=== PATIENT | male | born 1950 | race Caucasian/White ===

== ENCOUNTER 2017-02-01 11:58 | Emergency (ER) | payer OTHER ==
[~2017-02-01] VITALS: Ht 172.7 cm; Wt 74.0 kg
[~2017-02-01 11:58] MED LIST: AMLO5TAB2 PO; GABA600T PO; MELO-1 PO; TEMA30CA PO
[2017-02-01 12:01] VITALS: BP 166/89; PULSE 92; RESP 19; TEMP 98.6; O2SAT 97
[2017-02-01] MEDS ORDERED: IBUP-232 PO (12:21)
[2017-02-01] MEDS ORDERED: ACETAMINOPHEN/HYDROcodone 325 MG/5 MG TAB PO ONE (12:30)
--- NOTE | 2017-02-01 13:10 | PD ---
HPI Chief Complaint: Back/ Neck Pain or Injury Time Seen by Provider: 12:24 Travel History International Travel<30 days: No Contact w/Intl Traveler<30days: No Traveled to known affect area: No History of Present Illness HPI 66-year-old male with history of chronic low back pain presents to the emergency room for evaluation of acute exacerbation. Patient states 10 days ago he fell down approximately 11 steps. Patient denies hitting his head or loss of consciousness. States he is not exactly sure how he fell because it happened so quickly. He denies any other injuries except in his low back. Since then he has had excruciating low back pain especially over his coccyx with radiation to the right. He has been taking ibuprofen without significant relief in symptoms. Pain is worsened when he moves certain ways. States he has been able to ambulate but with significant pain. Patient has hardware in his back from 5 previous surgeries, the most recent being about 2 year ago. He called his orthopedic surgeon, Dr. Pierre Bernabe, who recommended he come to the emergency room for evaluation. He has an appointment with Dr. Chepe Bernabe tomorrow for pre-existing ankle pain. Patient denies lower extremity paresthesias, loss of bowel or bladder control, or saddle anesthesia. PFSH Past Medical History Hx Anticoagulant Therapy: No Arthritis: Yes Asthma: No Autoimmune Disease: No Blood Disorders: No Anxiety: No Depression: No Heart Rhythm Problems: No Cancer: No Cardiovascular Problems: Yes (htn on meds) High Cholesterol: Yes Chemotherapy: No Chest Pain: No Congestive Heart Failure: No COPD: Yes Cerebrovascular Accident: No Diabetes: Yes (Pre-) Patient Takes Glucophage: No Diminished Hearing: Yes Endocrine: No Gastrointestinal Disorders: No Glaucoma: No Genitourinary: No Headaches: Yes Hepatitis: No (HX PANCREATITIS) Hiatal Hernia: No Hypertension: Yes Immune Disorder: No Musculoskeletal: Yes (ARTHRITIS,BACK) Neurologic: Yes (TRANSIENT [place]. ARM NUMBNESS,R foot numbness since surgery) Psychiatric: No Reproductive: No Respiratory: Yes (COPD) Immunizations Current: No Migraines: No Myocardial Infarction: No Pancreatitis: Yes Seizures: No Sickle Cell Disease: No Sleep Apnea: Yes Thyroid Disease: No Triglycerides - High: Yes Tetanus Vaccination: Unknown Influenza Vaccination: Yes Past Surgical History Abdominal Surgery: No AICD: No Body Medical Devices: Lumbar and Rt. wrist hardware Cardiac Surgery: No Ear Surgery: No Endocrine Surgery: No Eye Surgery: No Genitourinary Surgery: No Gynecologic Surgery: No Joint Replacement: No Neurologic Surgery: Yes (Lumbar laminectomy, fusion ) Oral Surgery: No Pacemaker: No Thoracic Surgery: No Other Surgery: Yes Social History Alcohol Use: Yes (Occ.) Tobacco Use: Yes (1 PPD) Substance Use: No Allergies-Medications (Allergen,Severity, Reaction): Coded Allergies: bee venom protein (honey bee) (Unverified Allergy, Severe, Anaphylaxis, 02/01/17) hornet venom (Unverified Allergy, Severe, DIFFICULTY BREATHING, EDEMA, 02/01) Reported Meds & Prescriptions Reported Meds & Active Scripts Active Lortab (Hydrocodone-Acetaminophen) 5-325 Mg Tab 1 Tab PO Q6H PRN Reported Ibuprofen 600 Mg Tab 600 Mg PO BID Temazepam 30 Mg Cap 30 Mg PO HS Amlodipine (Amlodipine Besylate) 5 Mg Tab 10 Mg PO DAILY Gabapentin 600 Mg Tab 600 Mg PO BID Review of Systems Except as stated in HPI: all other systems reviewed are Neg Physical Exam Narrative GENERAL: Well-nourished, well-developed male in no acute distress. Afebrile. Ambulatory. SKIN: Focused skin assessment warm/dry. Large area of ecchymosis over the coccyx region. HEAD: Normocephalic. EYES: No scleral icterus. No injection or drainage. NECK: Supple, trachea midline. No JVD or lymphadenopathy. CARDIOVASCULAR: Regular rate and rhythm without murmurs, gallops, or rubs. RESPIRATORY: Breath sounds equal bilaterally. No accessory muscle use. BACK: No significant midline tenderness of the lumbar spine. No obvious deformity. There is tenderness to palpation over the coccyx. No CVA tenderness. Data Data Last Documented VS Vital Signs Date Time Temp Pulse Resp B/P (MAP) Pulse Ox O2 Delivery O2 Flow Rate FiO2 02/01/17 12:01 98.6 92 19 166/89 (114) [address] Lumb Spine W/O Contrast (02/01/17 ) Acetamin-Hydrocod 325-5 Mg ([place] 5-325 (02/01/17 12:30) Splint Or Brace Apply/Monitor (02/01/17 14:37) MDM Medical Decision Making Medical Screen Exam Complete: Yes Emergency Medical Condition: Yes Medical Record Reviewed: Yes Differential Diagnosis Ecchymosis, fracture, sprain, strain, coccydynia Narrative Course 66-year-old male presents to the emergency room for evaluation of acute on chronic low back pain after injuring it 10 days ago. Patient states he fell down 11 stairs landing on his buttocks. Since then he has had extreme low back pain without radiation. He denies any other injuries. No focal neurological deficits. No midline tenderness. There is moderate ecchymosis over the coccyx and upper buttocks. Patient is concerned for the hardware in his back. CT shows mild acute compression fractures involving the inferior end plate of T12 superior endplate of L2 as well as other chronic findings. I spoke to the patient's orthopedic surgeon, Dr. Pierre Bernabe, who reviewed the images and release patient is stable to follow-up in his office in 1-2 weeks. Patient was offered TLSO brace but would prefer to use his brace at home. He was discharged with prescription for Lortab and told to return for worsening symptoms. He understands and agrees to plan. Diagnosis Primary Impression: Compression fx, lumbar spine Qualified Codes: S32.020A - Wedge compression fracture of second lumbar vertebra, initial encounter for closed fracture Referrals: Primary Care Physician Additional Instructions: Rest and drink plenty of fluids. Take Lortab as directed, as needed for pain. Do not drink alcohol or drive while taking this medication. Take ibuprofen with food as directed, as needed for pain. Apply ice to the affected area for 20 minutes at a time, as needed for pain and swelling. Sit on a donut shaped pillow. Follow-up with a primary care physician. Return to the emergency room for worsening symptoms. Med/Other Pt SpecificInfo: Prescription(s) given Scripts Hydrocodone-Acetaminophen (Lortab) 5-325 Mg Tab 1 TAB PO Q6H Y for PAIN, #15 TAB 0 Refills Prov: Roberta Jackson DO 02/01/17 Disposition: 01 DISCHARGE HOME Condition: Stable Kia Nash Feb 01, 2017 13:09
[2017-02-01] MEDS ORDERED: HYDR-3533 PO (13:15)
--- NOTE | 2017-02-01 13:49 | RADRPT ---
EXAM DATE/TIME: 02/01/2017 12:58 [facility] COMPARISON: No previous studies available for comparison. INDICATIONS : Low back pain. Fell 1 1/2 weeks ago. RADIATION DOSE: 37.60 CTDIvol (mGy) MEDICAL HISTORY : Chronic obstructive pulmonary disease. Hypertension. SURGICAL HISTORY : Fusion, lumbar. ENCOUNTER: Initial ACUITY: 1 week PAIN SCALE: 8/10 LOCATION: Bilateral low back TECHNIQUE: Volumetric scanning of the lumbar spine was performed. Multiplanar reconstructions in the sagittal, coronal and oblique axial planes were performed. Using automated exposure control and adjustment of the mA and/or kV according to patient size, radiation dose was kept as low as reasonably achievable t o obtain optimal diagnostic quality images. DICOM format image data is available electronically for review and comparison. FINDINGS: Mild acute compression deformities are noted involving the inferior end plate of T12 and the superior end plate of L2, mild chronic compression deformities are noted involving L1. Posterior lumbar spin e fusion hardware is noted extending from L3 through S1. Disc implants are noted at L3-4, L4-5 and L 5-S1. Severe bilateral foraminal narrowing is noted at L5-S1. Moderate bilateral foraminal narrowin g is noted at L2-3, L3-4, and L4-5. Moderate circumferential spinal stenosis is noted at L2-3. CONCLUSION: 1. Mild acute compression fractures involving the inferior end plate of T12 and the superior end jonnie te of L2. Chronic mild compression deformity involving L1 is also noted. 2. Moderate circumferential spinal stenosis and bilateral foraminal narrowing at L2-3. 3. Severe bilateral foraminal narrowing at L5-S1 as well as moderate bilateral foraminal narrowing a t L3-4 and L4-5. Santana Willis MD on February 01, 2017 at 13:21 Board Certified Radiologist. This report was verified electronically.
--- NOTE | 2017-02-01 14:37 | PD ---
Physical Exam Narrative I, Dr. Jackson, have reviewed the advance practice practitioner's documentation and am in agreement, met with the patient face to face, made the diagnosis, and the medical decision making was done by me. *My assessment and Findings: Fracture vs. contusion 66yo M with chronic back pain here with acute on chronic back pain after falling down steps 10 days ago. Pt able to ambulate after. No focal neurologic deficits. Exam showed midline surgical scar and was not tender on my exam. Pt was sent by his orthopedic surgeon Dr. Parra's office for evaluation. CT LS showed mild acute compression fractures involving inferior end plate of T12 and superior end plate of L2. Dr. Parra was called and pt can follow up with him as outpatient. Will prescribe lortab for pain and have pt follow up with Dr. Parra. Return precautions given. Data Data Last Documented VS Vital Signs Date Time Temp Pulse Resp B/P (MAP) Pulse Ox O2 Delivery O2 Flow Rate FiO2 02/01/17 12:01 98.6 92 19 166/89 (114) [address] Lumb Spine W/O Contrast (02/01/17 ) Acetamin-Hydrocod 325-5 Mg ([place] 5-325 (02/01/17 12:30) Splint Or Brace Apply/Monitor (02/01/17 14:37) MDM Supervised Visit with RAUL: Yes Diagnosis Primary Impression: Compression fx, lumbar spine Qualified Codes: S32.020A - Wedge compression fracture of second lumbar vertebra, initial encounter for closed fracture Referrals: Primary Care Physician Patient Instructions: General Instructions Departure Forms: Tests/Procedures Additional Instruction: Please follow up with Dr. Parra. Rest and drink plenty of fluids. Take Lortab as directed, as needed for pain. Do not drink alcohol or drive while taking this medication. Take ibuprofen with food as directed, as needed for pain. Apply ice to the affected area for 20 minutes at a time, as needed for pain and swelling. Sit on a donut shaped pillow. Follow-up with a primary care physician. Return to the emergency room for worsening symptoms. Med/Other Pt SpecificInfo: Prescription(s) given Scripts Hydrocodone-Acetaminophen (Lortab) 5-325 Mg Tab 1 TAB PO Q6H Y for PAIN, #15 TAB 0 Refills Prov: Roberta Jackson DO 02/01/17 Disposition: 01 DISCHARGE HOME Condition: Stable Roberta Jackson DO Feb 01, 2017 14:37
== END 2017-02-01 15:09 | disposition home or self-care (01) ==
LOC: PHEFT 11:58
DX: S32.020A Wedge compression fracture of second lumbar vertebra, initial encounter for closed fracture (principal); I10 Essential (primary) hypertension; J44.9 Chronic obstructive pulmonary disease, unspecified; E11.9 Type 2 diabetes mellitus without complications; W10.9XXA Fall (on) (from) unspecified stairs and steps, initial encounter; Y99.8 Other external cause status
CPT/HCPCS: 72131

== ENCOUNTER → 2017-03-09 | Day surgery (SDC) | payer OTHER ==
[~2017-03-09] MED LIST changes: +BUPIVACAINE/EPINEPHRINE 0.5% PF 10 ML VIAL INFIL ONE; +HYDR-3533 PO; +IBUP-232 PO; +IOHEXOL 180 MG/ML 20 ML VIAL (for RAD DIAG) OTHER ONE; +KETOROLAC TROMETHAMINE 30 MG/ML (IVP) VIAL IV PUSH ONE; +LACTATED RINGER'S 1000 ML INJ 1,000 ML ONE; +LIDOCAINE 1.5%/EPINEPHrine 1:200,000 PF SOLN 30 ML AMP INFIL ONE; -MELO-1 PO; +MIDAZOLAM HCL 2 MG/2 ML VIAL ONE; +ONDANSETRON HCL 4 MG/2 ML VIAL IV PUSH ONE; +PROPOFOL 100 MG/10 ML INJ IV ONE; +ceFAZolin 2 GM PREMIX 50 ML ONE
--- NOTE | 2017-03-09 16:04 | TN ---
cc: GLENDY BULLARD DATE OF SURGERY: 03/09/1968 PREOPERATIVE DIAGNOSIS Compression fracture of T12 and L2, subacute. POSTOPERATIVE DIAGNOSIS Compression fracture of T12 and L2, subacute. PROCEDURE Kyphoplasty of T11 and L2. SURGEON Glendy Bullard ANESTHESIA TIVA. BLOOD LOSS Minimal. INDICATION This is a 67-year-old male who landed hard sitting down when he tripped. He had significant pain that started about 6 weeks ago he has been treated conservatively with a brace, oral medications decreased activities and etc. investigative studies show evidence of recent fractures at T12-L2. He presents for surgical treatment. PROCEDURE The patient brought to the operating given limited sedation. Rolled to prone position on the radiolucent table. All pressure points protected. The back was scrubbed alcohol followed by Hibiclens followed Chloraprep and draped sterilely. Antibiotics were given 1 hour time with a time-out was done. A single balloon approach utilizing left side at T12 and the right side at L2 a sequence of local anesthesia, small incision awl placed down through the pedicle and into the vertebral body at an oblique angle. A 20 mm Kyphon balloon was placed at both levels. They were inflated while back table methacrylate was mixed. After approximately 11 minutes was injected. Overall we had a very good fill with a minimal extravasation the cephalad endplate of L2. The cement lateral harden. The tubes removed. Intraoperative x-rays were obtained. The wound was irrigated, anesthetized, closed with 4-0 Vicryl followed by Dermabond. The patient awakened, taken to recovery in satisfactory condition. Glendy Bullard [place] [facility] [place]3:48 PM /3:54 PM
== END | disposition home or self-care (01) ==
LOC: ESDC 13:33
PROVIDERS: ATTEND Orthopaedic Surgery Orthopaedic Surgery of the Spine
DX: S22.080A Wedge compression fracture of T11-T12 vertebra, initial encounter for closed fracture (principal); S32.020A Wedge compression fracture of second lumbar vertebra, initial encounter for closed fracture
CPT/HCPCS: 01936; 22514; 22515; 72070; J0690; J1885; J2250; J2405; J3010; J7120; Q9965